=== PATIENT | female | born 1995 | race African-American/Black ===

== ENCOUNTER 2017-02-21 17:45 | Emergency (ER) | payer OTHER ==
[~2017-02-21 17:45] MED LIST: CYCL-331 PO; NAPR500T PO
[2017-02-21 18:12] VITALS: BP 124/69
[2017-02-21] MEDS ORDERED: LACT10SO PO (18:49)
--- NOTE | 2017-02-21 18:53 | PHYS DOC ---
General Chief Complaint: CONSTIPATION Stated Complaint: CONSTIPATION Time Seen by MD: 18:29 Source: patient Exam Limitations: no limitations Problems: History of Present Illness Initial Comments Patient is a 21-year-old female who comes to the ED complaining of constipation. Patient states she struggles with constipation chronically, she follows with [facility] typically. She says it's been a month since she had a bowel movement but denies any severe abdominal discomfort nausea or vomiting. She took one "laxative" earlier today the name of which she cannot recall. She is here with her spouse and appears to be in no discomfort or distress. She denies other symptoms. Timing/Duration: other Severity: severe (admission) Modifying Factors: improves with other Associated Symptoms: other Allergies: Coded Allergies: No Known Drug Allergies (Unverified , 03/05/16) Past Medical History Medical History: no pertinent history Surgical History: noncontributory Social History Smoker: non-smoker Alcohol: occasionally Drugs: none Review of Systems Constitutional: denies chills, denies fever Respiratory: denies cough, denies shortness of breath Cardiovascular: denies chest pain Gastrointestinal: see HPI Genitourinary: denies dysuria, denies frequency, denies hematuria Musculoskeletal: denies back pain, denies joint swelling, denies neck pain Physical Exam General Appearance: WD/WN, no apparent distress Neck: non-tender, supple Respiratory: normal breath sounds, no respiratory distress Cardiovascular: normal peripheral pulses, regular rate, rhythm Gastrointestinal: normal bowel sounds, non tender, soft, no organomegaly (no palpable stool or mass negative Hayes negative McBurney) Rectal: deferred Back: no CVA tenderness, no vertebral tenderness Extremities: non-tender, normal inspection 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 I advised her it could be tomorrow before it takes effect and therefore gave her a work excuse. See departure for instructions. She expressed agreement and understanding with the treatment plan. Departure Time of Disposition: 18:50 Disposition: 01 HOME, SELF-CARE Diagnosis: constipation Condition: GOOD Patient Instructions: Constipation, Adult, [id number] Additional Instructions: Aggressive hydration with gatorade, water. OTC prune juice. Off work tomorrow. Rx: Lactulose Follow up at [facility], return to ED as needed. MIKE LAROSE DO Feb 21, 2017 18:53
[2017-02-21] MEDS ORDERED: LACTULOSE 20 GM/30 ML SOLUTION. PO ONE (19:15)
== END 2017-02-21 19:06 | disposition home or self-care (01) ==
LOC: ER 17:45
DX: K59.00 Constipation, unspecified (principal)
CPT/HCPCS: 99283

== ENCOUNTER 2017-02-23 16:33 | Emergency (ER) | payer OTHER ==
[~2017-02-23] VITALS: Ht 175.3 cm; Wt 72.6 kg
[~2017-02-23 16:33] MED LIST changes: +LACT10SO PO
[2017-02-23] MEDS ORDERED: PEG4000S8 PO (19:30)
--- NOTE | 2017-02-23 19:30 | PHYS DOC ---
Past History Past Medical History: No Pertinent History Past Surgical History: No Surgical History Alcohol Use: None Drug Use: None Adult General Chief Complaint Chief Complaint: CONSTIPATION HPI HPI Patient is a 21 year old female who presents with constipation. Patient states that she has been having trouble moving her bowels for approximately 1 week. Patient seen 2 days ago in the emergency department and treated with lactulose. Patient states that this did not significant help her symptoms. Patient also states that she has tried an enema to help move her bowels but has had no success. Patient denies any nausea, vomiting, or sharp abdominal pain but states that she is having abdominal discomfort. Patient states that she has had to strain while using the bathroom and states that she has noticed small amounts of blood in her stool which she attributes to her constipation. Patient denies any significant past medical history but states that she has had issues with constipation off and on for many years. Review of Systems Review of Systems Constitutional: Denies fever or chills [] Eyes: Denies change in visual acuity, redness, or eye pain [] HENT: Denies nasal congestion or sore throat [] Respiratory: Denies cough or shortness of breath [] Cardiovascular: Denies chest pain or edema[] GI: Constipation, abdominal pain, denies vomiting[] : Denies dysuria or hematuria [] Musculoskeletal: Denies back pain or joint pain [] Integument: Denies rash or skin lesions [] Neurologic: Denies headache, focal weakness or sensory changes [] Allergies Allergies Allergies Coded Allergies Type Severity Reaction Last Updated Verified No Known Drug Allergies 03/05/16 No Physical Exam Physical Exam Constitutional: Well developed, well nourished, no acute distress, non-toxic appearance. [] HENT: Normocephalic, atraumatic, bilateral external ears normal, oropharynx moist, no oral exudates, nose normal. [] Eyes: PERRLA, EOMI, conjunctiva normal, no discharge. [] Neck: Normal range of motion, no tenderness, supple, no stridor. [] Cardiovascular:Heart rate regular rhythm, no murmur [] Lungs & Thorax: Bilateral breath sounds clear to auscultation [] Abdomen: Bowel sounds normal, soft, no tenderness, no masses, no pulsatile masses. [] Skin: Warm, dry, no erythema, no rash. [] Back: No tenderness, no CVA tenderness. [] Extremities: No tenderness, no cyanosis, no clubbing, ROM intact, no edema. [] Neurologic: Alert and oriented X 3, normal motor function, normal sensory function, no focal deficits noted. [] Current Patient Data Vital Signs Vital Signs Date Time Temp Pulse Resp B/P (MAP) Pulse Ox O2 Delivery O2 Flow Rate FiO2 02/23/17 17:59 98.1 73 20 100 Lab Results None performed EKG EKG Not performed[] Radiology/Procedures Radiology/Procedures Not performed[] Course & Med Decision Making Course & Med Decision Making Pertinent Labs and Imaging studies reviewed. (See chart for details) Patient's vital signs are stable and patient is in no acute distress. The patient will be prescribed GoLYTELY to assist with bowel movements. Advised follow-up at [facility] in 2-3 days for reevaluation and return to emergency department for any worsening symptoms. Patient voiced understanding and in agreement with treatment plan. Dragon Disclaimer Dragon Disclaimer This chart was dictated in whole or in part using Voice Recognition software in a busy, high-work load, and often noisy Emergency Department environment. It may contain unintended and wholly unrecognized errors or omissions. Departure Departure: Impression: Primary Impression: Constipation Disposition: 01 HOME, SELF-CARE Condition: STABLE Referrals: WINIFRED CARRANZA (PCP) Patient Instructions: Constipation, Adult Additional Instructions: Follow-up in 2-3 days with primary doctor for reevaluation. Return to emergency department for any worsening symptoms. Scripts Peg 3350/Na Sulf,Bicarb,Cl/Kcl (GOLYTELY SOLUTION) 4,000 Ml Soln.recon 2000 ML PO 1X Y for CONSTIPATION, #1 MISC You may drink the rest of the bottle if you do not give relief with the first 2000 mL. Prov: MICAELA MATA MD 02/23/17 Problem Qualifiers Primary Impression: Constipation Constipation type: unspecified constipation type Qualified Codes: K59.00 - Constipation, unspecified MICAELA MATA MD Feb 23, 2017 19:30
[2017-02-23 19:36] VITALS: BP 143/87
== END 2017-02-23 19:31 | disposition home or self-care (01) ==
LOC: ER 16:33
DX: K59.00 Constipation, unspecified (principal)
CPT/HCPCS: 99283

== ENCOUNTER 2017-05-18 03:49 | Emergency (ER) | payer OTHER ==
[~2017-05-18] VITALS: Ht 175.3 cm; Wt 72.6 kg
[2017-05-18 03:49] VITALS: BP 134/84
[~2017-05-18 03:49] MED LIST changes: +NAPR-683 PO; -NAPR500T PO; +PEG4000S8 PO
--- NOTE | 2017-05-18 04:04 | PHYS DOC ---
Past History Past Medical History: No Pertinent History Past Surgical History: No Surgical History Alcohol Use: None Drug Use: None Adult General Chief Complaint Chief Complaint: NOSEBLEED HPI HPI Patient is a 21-year-old female who presents with complaints of nosebleed out of the right nostril. Patient has been having some congestion URI symptoms and tonight she woke up from her sleep felt like her nose was stuffed up so she blew her nose and then has what appears to be a blood clot come out. She bled for a little bit by the time she had right to the ED there was no bleeding. Patient denies any trauma. Patient has no significant past medical history no known medical problems Review of Systems Review of Systems Constitutional: Denies fever or chills. HENT: As per history of present illness. No trauma Respiratory: Denies shortness of breath [] GI: Denies abdominal pain, nausea, vomiting, bloody stools or diarrhea [] Integument: Denies rash or skin lesions [] [] All other systems were reviewed and found to be within normal limits, except as documented in this note. Allergies Allergies Allergies Coded Allergies Type Severity Reaction Last Updated Verified No Known Drug Allergies 03/05/16 No Physical Exam Physical Exam Constitutional: Well developed, well nourished, no acute distress, non-toxic appearance. [] HENT: Normocephalic, atraumatic, bilateral external ears normal, oropharynx moist, no oral exudates, nose normal. No septal hematomas, no active bleeding. Questionable small scratch in the inner nostril right side but there is no active bleeding Eyes: EOMI, conjunctiva normal, no discharge. [] Neck: Normal range of motion, trachea midline no stridor. [] Cardiovascular: Normal perfusion Lungs & Thorax: No Tachypnea Abdomen: Distention Skin: Warm, dry, no erythema, no rash. [] Back: Normal range of motion[] Extremities: No tenderness, , ROM intact, no edema. [] Neurologic: Alert and oriented X 3, normal motor function, , no focal deficits noted. [] Psychologic: Affect normal, judgement normal, mood normal. [] EKG EKG [] Radiology/Procedures Radiology/Procedures [] Course & Med Decision Making Course & Med Decision Making Pertinent Labs and Imaging studies reviewed. (See chart for details) Discussed possible catheterization to small lesion identified in the right nostril but patient declines given that she is no longer bleeding. We will provide nose clamp to the patient in case situation recurs. Patient has been indicated on the need for a pressure control in the event of her recurrence, also dictated on the use of nasal saline spray. Patient understands and agrees to follow-up as directed [] Dragon Disclaimer Dragon Disclaimer This electronic medical record was generated, in whole or in part, using a voice recognition dictation system. Departure Departure: Impression: Primary Impression: Nosebleed Disposition: 01 HOME, SELF-CARE Condition: LEFT WITHOUT BEING SEEN Referrals: WINIFRED CARRANZA (PCP) Please follow with your doctor in 1-2 days only if needed. If you start experiencing frequent recurrent nosebleeds please discuss with your doctor and discuss possible need for referral to specialist Patient Instructions: Arlette Alvarenga MD May 18, 2017 04:04
== END 2017-05-18 04:05 | disposition home or self-care (01) ==
LOC: ER 03:49
DX: R04.0 Epistaxis (principal)
CPT/HCPCS: 99284

== ENCOUNTER 2017-10-06 08:17 | Emergency (ER) | payer OTHER ==
[~2017-10-06] VITALS: Ht 157.5 cm; Wt 70.3 kg
--- NOTE | 2017-10-06 08:48 | PHYS DOC ---
Past History Past Medical History: No Pertinent History Past Surgical History: Other (nasal poly removal) Smoking: Non-smoker Alcohol Use: Occasionally Drug Use: None Adult General Chief Complaint Chief Complaint: BACK PAIN OR INJURY HPI HPI 22-year-old otherwise healthy female presenting the emergency department today with low back pain that is a throbbing sensation that started last night. It is nonradiating mild to moderate. Worse when she lays down to sleep. She tried ibuprofen at home with out much relief. She denies being vaginal bleeding. She denies numbness weakness or tingling in the lower extremities. She denies urinary or fecal incontinence. Denies IV drug use. Review of systems is negative for chest pain shortness of breath fevers chills. All other review of systems is negative unless otherwise noted in history of present illness. ED course: 20-year-old female with low back pain likely musculoskeletal. Vitals unremarkable. Exam is unremarkable. Examination the back shows mild tenderness in the paraspinal musculature without midline tenderness step-offs abrasions lacerations or ecchymosis. No fluctuant masses or erythema. Otherwise unremarkable examination.The patient has been examined and was not found to have an emergency medical condition. The patient was then discharged home in stable condition to follow up with their primary care physician over the next 2- 3 days. They were to return if their symptoms worsened or if they were concerned for any reason. [id number] discharge instructions and return precautions were given. Patient's questions were answered to their satisfaction. Patient is comfortable with plan. Review of Systems Review of Systems SEE ABOVE. Allergies Allergies Allergies Coded Allergies Type Severity Reaction Last Updated Verified No Known Drug Allergies 03/05/16 No Physical Exam Physical Exam SEE ABOVE Constitutional: Well developed, well nourished, no acute distress, non-toxic appearance. HENT: Normocephalic, atraumatic, bilateral external ears normal, oropharynx moist, no oral exudates, nose normal. [] Eyes: PERRLA, EOMI, conjunctiva normal, no discharge. Neck: Normal range of motion, no tenderness, supple, no stridor. [] Cardiovascular:Heart rate regular rhythm, no murmur Lungs & Thorax: Bilateral breath sounds clear to auscultation [] Abdomen: Bowel sounds normal, soft, no tenderness, no masses, no pulsatile masses. Skin: Warm, dry, no erythema, no rash. [] Back:see above Extremities: No tenderness, no cyanosis, no clubbing, ROM intact, no edema. [] Neurologic: Alert and oriented X 3, normal motor function, normal sensory function, no focal deficits noted. Psychologic: Affect normal, judgement normal, mood normal. [] Current Patient Data Vital Signs Vital Signs Date Time Temp Pulse Resp B/P (MAP) Pulse Ox O2 Delivery O2 Flow Rate FiO2 10/06/17 08:27 98.3 80 18 97 Room Air EKG EKG [] Radiology/Procedures Radiology/Procedures [] Course & Med Decision Making Course & Med Decision Making Pertinent Labs and Imaging studies reviewed. (See chart for details) [] Dragon Disclaimer Dragon Disclaimer This electronic medical record was generated, in whole or in part, using a voice recognition dictation system. Departure Departure: Impression: Primary Impression: Low back pain Disposition: HOME, SELF-CARE Condition: STABLE Referrals: NON,STAFF (PCP) Patient Instructions: Back Injury Prevention, [id number] Additional Instructions: Thank you for allowing us to participate in your care today. Followup with your primary care physician in 3 days if your symptoms do not improve. Call your Primary Doctor tomorrow and inform them of your visit today. If you do not have a primary care provider you can ask for a list of our primary care providers. Return to the emergency department you have any new or concerning findings. This should be evaluated by the primary care physician and any necessary consulting services for continued management within a few days after discharge. Return to emergency room if you have any new or concerning symptoms including but not limited to fever, chills, nausea, vomiting, intractable pain, any new rashes, chest pain, shortness of air, uncontrolled bleeding, difficulty breathing, and/or vision loss. If at any time, you are having difficulty getting into your primary care doctor or a specialist, return to the emergency department. You may have been prescribed medication or given medication in the emergency department that can change in your level of thinking and ability to operate machinery. These medications include hydrocodone and Ativan. Also, Benadryl has been known to do this as well. Be sure to check with your pharmacist and ask if the medications you've prescribed can affect your level of consciousness. I recommend not operating heavy machinery or driving while on medication such as these. Scripts Hydrocodone Bit/Acetaminophen (HYDROCODONE-APAP 5-325 ) 1 Each Tablet 1 TAB PO PRN Q6HRS PRN for PAIN, #10 TAB 0 Refills Prov: SHI GODFREY MD 10/06/17 SHI GODFREY MD October 06, 2017 08:48
[2017-10-06] MEDS ORDERED: HYDROcodone/APAP 5/325MG 1 TAB TABLET PO ONE (09:00)
[2017-10-06 09:27] LABS: BILIRUBIN,URINE NEG (NEG); CLARITY,URINE HAZY; COLOR,URINE YELLOW; GLUCOSE,URINE NEG (NEG)
[2017-10-06 09:28] LABS: BACTERIA,URINE FEW /HPF (0-FEW); NITRITE,URINE NEG (NEG); RBC,URINE 0 /HPF (0-2); SQUAMOUS EPITHELIAL CELL,UR MOD /LPF; UROBILINOGEN,URINE 1 mg/dL (0.2 mg/dL); WBC,URINE RARE /HPF (0-4)
[2017-10-06] MEDS ORDERED: HYDR-2758 PO (09:32)
[2017-10-06 09:40] VITALS: BP 122/83
== END 2017-10-06 09:40 | disposition home or self-care (01) ==
LOC: ER 08:17
DX: M54.5 Low back pain (principal)
CPT/HCPCS: 81001; 81025; 87086; 99284